=== PATIENT | male | born 1955 ===

== ENCOUNTER 2016-07-02 12:33 | Observation (INO) | payer MEDICAID ==
[2016-07-02 12:00] VITALS: PULSE 65
[~2016-07-02 12:33] MED LIST: AMLO10TA2 PO; ASPI1TAB69 PO; CLON0.5T PO; SERT-129 PO
[2016-07-02] MEDS ORDERED: SODIUM CHLORIDE 0.9% FLUSH 10 ML FLUSH IV FLUSH PRN (12:45)
--- NOTE | 2016-07-02 12:49 | HHI.HP ---
[facility] Woody Fitzpatrick MD Admission Diagnosis Diagnoses: (1) Syncope Chief Complaint: Syncope Travel History International Travel<30 Days: No Contact w/Intl Traveler <30 Da: No History of Present Illness 61-year-old male with a past medical history significant for bipolar disorder, hypertension, anxiety, TIA presented to the emergency room with reported syncopal episode. The patient reports he was watching TV, he got up and "everything went black" and he woke up from the floor with facial and neck pain. He reports chronic problems with dizziness for which she takes meclizine on an as needed. He also reports a history of chronic pain for which he reports taking oxycodone but later noted it was switched to Ultram. Based on [employer] query, he has not had any narcotic prescriptions in the past year. 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 He denies any presyncopal symptoms. He denies chest pain or shortness of breath. Currently he reports having facial and neck pain. He is requesting 30 mg of oxycodone. Review of Systems Constitutional: DENIES: Fever, Chills Cardiovascular: COMPLAINS OF: Syncope, DENIES: Chest pain, Palpitations, Lower Extremity Edema Musculoskeletal: COMPLAINS OF: Joint pain, Neck pain Except as stated in HPI: all other systems reviewed are Neg Past Family Social History Past Medical History bipolar disorder, hypertension, TIA Chronic back pain Past Surgical History Hip/pelvis/ankle surgery after traumatic accident Reported Medications Patient reports is taking 30 mg of oxycodone but we have not been able to verified this. Reported Meds & Active Scripts Active Reported Amlodipine (Amlodipine Besylate) 10 Mg Tab 10 Mg PO DAILY Sertraline (Sertraline HCl) 100 Mg Tab 100 Mg PO DAILY Clonazepam 0.5 Mg Tab 0.5 Mg PO TID Aspirin 81 Mg Tabdr 81 Mg PO DAILY Allergies: Coded Allergies: Penicillin (Verified Allergy, Unknown, 07/02/16) Family History Reviewed and noncontributory. Social History Patient denies tobacco, alcohol, or illicit drug use. Physical Exam Physical Exam GENERAL: This is a well-nourished, well-developed patient, in no apparent distress. SKIN: No rashes, ecchymoses or lesions. Cool and dry. HEAD: Atraumatic. Normocephalic. Patient reports some facial tenderness. EYES: Pupils equal round and reactive. Extraocular motions intact. No scleral icterus. No injection or drainage. ENT: Nose without bleeding, purulent drainage or septal hematoma. Throat without erythema, tonsillar hypertrophy or exudate. Uvula midline. Airway patent. NECK: Trachea midline. Mild neck pain. CARDIOVASCULAR: Regular rate and rhythm without murmurs, gallops, or rubs. RESPIRATORY: Clear to auscultation. Breath sounds equal bilaterally. No wheezes , rales, or rhonchi. GASTROINTESTINAL: Abdomen soft, non-tender, nondistended. No hepato-splenomegaly , or palpable masses. No guarding. MUSCULOSKELETAL: Extremities without clubbing, cyanosis, or edema. No joint tenderness, effusion, or edema noted. No calf tenderness. Negative Homans sign bilaterally. NEUROLOGICAL: Awake and alert. Cranial nerves II through XII intact. Motor and sensory grossly within normal limits. Five out of 5 muscle strength in all muscle groups. Normal speech. Imaging Last Impressions Carotid Artery Ultrasound 07/02/16 0000 Signed Impressions: Service Date/Time: Saturday, July 02, 2016 13:11 - CONCLUSION: Minimal bilateral carotid plaque without evidence of hemodynamically significant stenosis. Antegrade flow in both vertebral arteries. Alexandr Ramos MD Assessment and Plan Problem List: (1) Syncope ICD Code: R55 Status: Acute Plan: Most likely vasovagal syncope. Patient have orthostatic hypotension as well. He also appear to be somewhat dehydrated. Medications may be contributing as well. He is positive for opiates on his tox screen but no prescriptions for opiates could be found on [employer]. - Head CT, facial CT unremarkable. Cervical CT with some degenerative changes. - Hold amlodipine. Hydrate with IV fluid - Obtain 2-D echocardiogram and carotid ultrasound. - Minimize sedating medications. - Monitor on telemetry (2) Hypertension ICD Code: I10 Status: Acute Plan: See above. Blood pressure borderline low. Hold amlodipine. (3) Bipolar disorder ICD Code: F31.9 Status: Acute Plan: He appears to still be somewhat sedated. Hold Seroquel for now. - Clonazepam as needed only. (4) Chronic back pain ICD Code: M54.9 Status: Acute Plan: Patient currently complaining of severe back pain, facial, and neck pain. - Advised him that I will not escalate his narcotics. I will order tramadol for severe pain only. I am concerned that he is taking someone else's narcotic prescriptions medications. I encouraged him to have his bring his pill bottle. (5) Neck pain, chronic ICD Code: M54.2 Status: Acute Plan: Pain control. (6) Facial pain, acute ICD Code: R51 Status: Acute Discussed Condition With Vanessa Rodgers MD July 02, 2016 12:49
[2016-07-02 13:28] VITALS: BP_SYST 103; BP_SYST 107; BP_SYST 95; BP_DIAS 61; BP_DIAS 64; BP_DIAS 65; PULSE 59; RESP 18; TEMP 96.4; O2SAT 99
[2016-07-02] MEDS: SODIUM CHLOR 0.9% 1000 ML INJ 1,000 ML IV SCH ×2 (14:17→20:45)
--- NOTE | 2016-07-02 14:25 | RADHPO ---
EXAM DATE/TIME: 07/02/2016 13:11 [facility] COMPARISON: No previous studies available for comparison. INDICATIONS : Syncope. MEDICAL HISTORY : Hypertension. Stroke TIA. SURGICAL HISTORY : Left hip surgery. Left ankle surgery. ENCOUNTER: Initial ACUITY: 1 day PAIN SCORE: 03/02 LOCATION: Bilateral neck PEAK SYSTOLIC VELOCITIES (cm/sec): ICA/CCA RATIO: Right: 1.1 Left: 0.9 ICA: Right: 91 Left: 82 CCA: Right: 86 Left: 90 ECA: Right: 38 Left: 50 VERTEBRAL: Right: 59 antegrade Left: 88 antegrade Elevated flow velocities and ICA/CCA ratios have been found to correlate with increased degrees of vessel stenosis, calculated as percentage of diameter relative to a normal segment of distal ICA/CCA FINDINGS: Minimal plaque is identified in both carotid bifurcations. RIGHT CAROTID: No significant stenosis is visualized. The waveforms are within normal limits. LEFT CAROTID: No significant stenosis is visualized. The waveforms are within normal limits. VERTEBRAL ARTERIES: Antegrade flow is seen in both vertebral arteries. MISCELLANEOUS: None. CONCLUSION: Minimal bilateral carotid plaque without evidence of hemodynamically significant stenosis. Antegrade flow in both vertebral arteries. Alexandr Ramos MD on July 02, 2016 at 14:22 Board Certified Radiologist. This report was verified electronically.
[2016-07-02 15:00] VITALS: PULSE 65
[2016-07-02] MEDS ORDERED: IBUPROFEN 600 MG TAB PO PRN (15:45)
--- NOTE | 2016-07-02 16:55 | EC ---
Study Study Date:07/02/2016 STUDY CONCLUSIONS SUMMARY - Left ventricle: The cavity size was normal. Wall thickness was normal. Systolic function was normal. The estimated ejection fraction was in the range of 60% to 65%. Wall motion was normal; there were no regional wall motion abnormalities. - Tricuspid valve: Mild regurgitation. If LV function is below 40, please consider prescribing an ACEI or ARB or document rationale for non-use. PROCEDURE DATA STUDY STATUS: Elective. Procedure: Transthoracic echocardiography. Image quality was good. Scanning was performed from the parasternal, apical, and subcostal acoustic windows. Study completion: The patient tolerated the procedure well. Transthoracic echocardiography. M-mode, complete 2D, complete spectral Doppler, and color Doppler. Patient status: Inpatient. CARDIAC ANATOMY LEFT VENTRICLE: The cavity size was normal. Wall thickness was normal. Systolic function was normal. The estimated ejection fraction was in the range of 60% to 65%. Wall motion was normal; there were no regional wall motion abnormalities. AORTIC VALVE: Trileaflet; normal thickness leaflets. Doppler: Transvalvular velocity was within the normal range. There was no stenosis. No regurgitation. AORTA: Aortic root: The aortic root was normal in size. MITRAL VALVE: Structurally normal valve. Doppler: Transvalvular velocity was within the normal range. There was no evidence for stenosis. No regurgitation. LEFT ATRIUM: The atrium was normal in size. RIGHT VENTRICLE: The cavity size was normal. Wall thickness was normal. PULMONIC VALVE: Doppler: Transvalvular velocity was within the normal range. There was no evidence for stenosis. No regurgitation. TRICUSPID VALVE: Structurally normal valve. Doppler: Transvalvular velocity was within the normal range. Mild regurgitation. PULMONARY ARTERY: The main pulmonary artery was normal-sized. Systolic pressure was within the normal range. RIGHT ATRIUM: The atrium was normal in size. PERICARDIUM: There was no pericardial effusion. SYSTEMIC VEINS: Inferior vena cava: The vessel was normal in size. BASIC MEASUREMENTS ADULT NORMAL Left ventricle LV internal dimension, ED, chordal level, 47 mm 43-52 PLAX LV internal dimension, ES, chordal level, 35.5 mm 23-38 PLAX Fractional shortening, chordal level, PLAX *24 % >29 LV posterior wall thickness, ED 7.09 mm IVS/LVPW ratio, ED 1.23 <1.3 Ventricular septum Septal thickness, ED 8.73 mm Aortic valve Leaflet separation 23 mm 15-26 Left atrium Anterior-posterior dimension 37 mm Right ventricle RV internal dimension, ED, PLAX 23.2 mm 19-38 BASIC MEASUREMENTS ADULT NORMAL Aortic valve Leaflet separation 23 mm 15-26 Aorta Root diameter, ED 32 mm 20-37 DOPPLER MEASUREMENTS ADULT NORMAL Mitral valve Peak E-wave velocity 64.2 cm/s Peak A-wave velocity 63.7 cm/s Peak E/A ratio 1 Tricuspid valve Regurgitant peak velocity 214 cm/s Peak RV-RA gradient, S 18 mm Hg Maximal regurgitant velocity 214 cm/s LEGEND: Mean values are shown as u=mean value. Asterisk (*) price values outside specified normal range. Prepared and signed by Galileo Mcmanus [id number]
[2016-07-02 20:25] VITALS: PULSE 60
[2016-07-02 20:52] VITALS: BP 104/54; PULSE 59; RESP 16; TEMP 98.1; O2SAT 98
[2016-07-02] MEDS: SODIUM CHLORIDE 0.9% FLUSH 10 ML FLUSH IV FLUSH SCH (20:54)
[2016-07-02] MEDS: traMADol HCL 50 MG TAB PO PRN (21:08)
[2016-07-02 23:00] VITALS: PULSE 60
[2016-07-03 04:11] VITALS: BP 135/75; PULSE 58; RESP 18; TEMP 97.4; O2SAT 98
[2016-07-03] MEDS: SODIUM CHLOR 0.9% 1000 ML INJ 1,000 ML IV SCH (04:27)
[2016-07-03 07:17] LABS: AUTOMATED NEUTROPHIL # 4.4 TH/MM3 (1.8-7.7); BASOPHIL # 0.1 TH/MM3 (0-0.2); BASOPHIL % 0.9 % (0.0-2.0); EOSINOPHIL # 0.3 TH/MM3 (0-0.4); EOSINOPHIL % 4.5 % (0.0-4.0); HEMATOCRIT 38.9 % (39.0-51.0); HEMO FLAGS DIFF FINAL; LYMPH % 27.7 % (9.0-44.0); LYMPHOCYTE # 2.1 TH/MM3 (1.0-4.8); MEAN CELL VOLUME 86.6 FL (80.0-100.0); MEAN CORPUSCULAR HEMOGLOBIN 29.4 PG (27.0-34.0); MONO % 8.3 % (0.0-8.0); NEUT % 58.6 % (16.0-70.0); PLATELET COUNT 207 TH/MM3 (150-450); RED BLOOD COUNT 4.49 MIL/MM3 (4.50-5.90); RED CELL DISTRIBUTION WIDTH 13.5 % (11.6-17.2); WHITE BLOOD COUNT 7.5 TH/MM3 (4.0-11.0)
[2016-07-03 07:27] LABS: POTASSIUM 3.7 MEQ/L (3.5-5.1)
[2016-07-03 07:31] LABS: BICARBONATE 27.2 MEQ/L (21.0-32.0)
[2016-07-03 08:00] VITALS: PULSE 72
[2016-07-03] MEDS ORDERED: clonazePAM 0.5 MG TAB PO PRN (08:45)
[2016-07-03] MEDS ORDERED: SERTRALINE HCL 100 MG TAB PO SCH (09:00)
[2016-07-03] MEDS: SODIUM CHLORIDE 0.9% FLUSH 10 ML FLUSH IV FLUSH SCH (09:00)
[2016-07-03] MEDS ORDERED: ASPIRIN EC 81 MG TABEC PO SCH (09:00)
[2016-07-03 09:40] VITALS: BP 153/82; PULSE 68; RESP 16; TEMP 97.2; O2SAT 100
[2016-07-03] MEDS: traMADol HCL 50 MG TAB PO PRN (10:11)
--- NOTE | 2016-07-03 11:03 | HHI.DCPOC ---
Discharge Care Plan Diagnosis: (1) Vasovagal syncope (2) Bipolar disorder (3) Chronic back pain (4) Neck pain, chronic Goals to Promote Your Health * To prevent worsening of your condition and complications * To maintain your health at the optimal level Directions to Meet Your Goals Take your medications as prescribed Follow your dietary instruction Follow activity as directed Keep your appointments as scheduled Take your immunizations and boosters as scheduled If your symptoms worsen call your PCP, if no PCP go to Urgent Care Center or Emergency Room Smoking is Dangerous to Your Health. Avoid second hand smoke Call the 24-hour hour crisis hotline for domestic abuse at Vanessa Lisa MD July 03, 2016 11:03
--- NOTE | 2016-07-03 11:04 | HHI.PR ---
Subjective Remarks Patient reports he is feeling good. Ready to go home. No lightheadedness, chest pain, or shortness of breath. Blood pressure normalized. He has been up and walking. Objective Vitals Vital Signs Date Time Temp Pulse Resp B/P Pulse Ox O2 Delivery O2 Flow Rate FiO2 07/03/16 09:40 97.2 68 16 153/82 100 07/03/16 04:11 97.4 58 18 135/75 98 07/02/16 23:00 60 07/02/16 20:52 98.1 59 16 104/54 98 07/02/16 20:25 60 07/02/16 15:00 65 07/02/16 13:28 96.4 59 18 107/65 99 103/64 95/61 07/02/16 12:00 65 I/O 07/02/16 07/02/16 07/02/16 07/03/16 07/03/16 07/03/16 07:00 15:00 23:00 07:00 15:00 23:00 Intake Total 2178 ml 144 ml Balance 2178 ml 144 ml Intake IV Total 2178 ml 144 ml # Voids 1 3 Result Diagram: 07/03/16 0645 07/03/16 0645 Imaging Last Impressions Carotid Artery Ultrasound 07/02/16 0000 Signed Impressions: Service Date/Time: Saturday, July 02, 2016 13:11 - CONCLUSION: Minimal bilateral carotid plaque without evidence of hemodynamically significant stenosis. Antegrade flow in both vertebral arteries. Alexandr Ramos MD Objective Remarks GENERAL: This is a well-nourished, well-developed patient, in no apparent distress. CARDIOVASCULAR: Normal rate and regular rhythm without murmurs, gallops, or rubs. RESPIRATORY: Good respiratory efforts. Breath sounds equal and clear to auscultation bilaterally. GASTROINTESTINAL: Abdomen soft, non-tender, non-distended. Normal active bowel sounds MUSCULOSKELETAL: Extremities without cyanosis, or edema. NEURO: Alert & Oriented x4 to person, place, time, situation. Moves all ext x4 PSYCH: Appropriate mood and affect. A/P Problem List: (1) Syncope ICD Code: R55 Status: Acute Plan: Most likely vasovagal syncope. Patient have orthostatic hypotension as well. He also appear to be somewhat dehydrated. Medications may be contributing as well. He is positive for opiates on his tox screen but no prescriptions for opiates could be found on [employer]. - Head CT, facial CT unremarkable. Cervical CT with some degenerative changes. - Blood pressure improved with hydration and holding amlodipine. - LVEF preserved with mild tricuspid regurgitation. -Patient strongly advised to avoid sedating medications. (2) Hypertension ICD Code: I10 Status: Acute Plan: See above. Blood pressure too low. Patient advised to discontinue amlodipine and follow-up with his primary care physician. (3) Bipolar disorder ICD Code: F31.9 Status: Acute Plan: May resume home medications. (4) Chronic back pain ICD Code: M54.9 Status: Acute Plan: I am concerned that he is taking someone else's narcotic prescriptions medications. Patient was counseled. (5) Neck pain, chronic ICD Code: M54.2 Status: Acute (6) Facial pain, acute ICD Code: R51 Status: Acute Discharge Planning Discharge home in good condition Activity: Regular as tolerated Diet: Heart healthy Medications: Discontinue amlodipine. See med rec. Follow-up with PCP within a week. Vanessa Lisa MD July 03, 2016 11:04
--- NOTE | 2016-07-03 20:29 | MG ---
cc: SILVANA MONTENEGRO M.D. Lab No: [id number] Date: Age: 61 Sex: M Race: REFERRING PHYSICIAN: Maria L. ROOM: A311. With photic stimulation. EEG is awake, drowsy, asleep. No imaging. This is a 61-year-old patient with syncope who stood up and everything went black. He woke up on the floor. History of bipolar disease, anxiety, TIA history. CURRENT MEDICATIONS: 1. Aspirin. 2. Zoloft. DESCRIPTION OF RECORD: The patient has a good alpha rhythm of 8 to 8.5 hertz, 20 to 30 microvolts symmetrical. Some minor eye movement artifact but overall symmetrical background. Some mild attenuation as he becomes state but photic stimulation was then performed but a normal driving response. No evidence of any epileptic activity. IMPRESSION: Normal EEG. Clinical correlation. MD GAYE Kenny/TAMIKA /7:58 PM /8:20 PM
== END 2016-07-03 13:00 | disposition home or self-care (01) ==
LOC: PHEDDLT 12:33 → PH3B 12:34
PROVIDERS: ADMIT Family Medicine; ATTEND Family Medicine
DX: I95.1 Orthostatic hypotension (principal); I10 Essential (primary) hypertension; F31.9 Bipolar disorder, unspecified; F41.9 Anxiety disorder, unspecified; G89.29 Other chronic pain; M54.9 Dorsalgia, unspecified; E86.0 Dehydration; M54.2 Cervicalgia; R51 Headache; I07.1 Rheumatic tricuspid insufficiency; Z86.73 Personal history of transient ischemic attack (TIA), and cerebral infarction without residual deficits; Z88.0 Allergy status to penicillin
CPT/HCPCS: 70450; 70486; 72125; 80048; 80307; 81001; 82550; 83735; 84484; 85025; 85610; 85730; 93005; 93306; 93880; 95819; G0378; J1885; J7030; 96361; 96374; 99281